=== PATIENT | female | born 1965 | race Caucasian/White ===

== ENCOUNTER 2019-06-22 09:39 | Outpatient (CLI) | payer BC ==
--- NOTE | 2019-06-22 14:21 | MRI ---
MRI OF LEFT ELBOW PERFORMED WITHOUT CONTRAST ENHANCEMENT: Date: 06/22/2019 HISTORY: Injured elbow playing pickle ball. FINDINGS: There is a biceps tendon tear present. This is a differential tear of the long head and short head fi bers. This includes a complete tear of the short head of the biceps tendon, which is retracted proxim ally by approximately 9.6 cm. The integrity of this portion of the tendon is difficult to assess; it appears to be balled up in this region. There do appear to be fibers identified laterally which exten d as the typical dark fibers to the level of the lacertus fibrosis which is felt to be intact. Distal to this level, over an approximately 2 cm segment, there is increased signal change, but I believe t hat there are still a few intact fibers related to the long head with significant interstitial tearin g. The brachialis tendon appears intact. The triceps tendon appears intact. Ulnar collateral ligament and lateral collateral ligamentous complexes appear normal. There is some m ild tendinosis of the common extensor tendon. The common flexor tendon is unremarkable. IMPRESSION: Differential retraction of the fibers of the biceps tendon. The short head fibers are significantly r etracted by approximately 9.6 cm. However, some of the fibers of what appear to be long head of bicep s tendon are still seen to the level of at least a partially intact lacertus fibrosis. There are some edema changes in this region. The distal 2.0 cm of the tendon show increased signal change, although I think some of the fibers are still intact, but probably with significant interstitial tearing. POS: [facility]
--- NOTE | 2019-06-22 14:33 | MRI ---
MRI RIGHT ELBOW: DATE: . PROVIDED CLINICAL HISTORY: Right biceps tear. FINDINGS: Intact fibers of the biceps tendon are not identified at the radial insertion or antecubital fossa re gion. There is abnormal appearance to the partially visualized distal biceps muscle which appears hy pointense on T1 and T2 weighted images and presumably reflects redundant, approximated, retracted bic eps tendon. This is not included on the sagittal and coronal sequences and is incompletely character ized. Presuming this represents the long head biceps tendon, this is retracted by at least 7 cm. The triceps and brachialis insertions appear normal. The common extensor and common flexor tendon or igins appear normal. The medial and lateral elbow ligaments appear intact. No focal articular cartilage defect is apparen t. The amount of fluid within the elbow joint appears physiologic. Regional marrow and muscular signal appear otherwise normal. The courses of the regional major neurovascular structures appear unremarka ble. IMPRESSION: Complete insertional biceps tendon disruption with proximal retraction as described. POS: OFF
== END 2019-06-22 09:40 | disposition home or self-care (01) ==
LOC: BICMRI 09:39
PROVIDERS: ATTEND Orthopaedic Surgery
DX: S46.212A Strain of muscle, fascia and tendon of other parts of biceps, left arm, initial encounter (principal); S46.211A Strain of muscle, fascia and tendon of other parts of biceps, right arm, initial encounter; M67.88 Other specified disorders of synovium and tendon, other site

== ENCOUNTER 2021-12-22 09:33 | Outpatient (CLI) | payer BC | END 2021-12-22 09:34 | disposition home or self-care (01) | LOC: RAD 09:33 | PROVIDERS: ATTEND Internal Medicine Gastroenterology | DX: R13.10 Dysphagia, unspecified (principal); R12 Heartburn; K21.9 Gastro-esophageal reflux disease without esophagitis; Z80.0 Family history of malignant neoplasm of digestive organs | CPT/HCPCS: 74220 ==